=== PATIENT | female | born 1945 | race Caucasian/White ===

== ENCOUNTER → 2019-11-16 | Outpatient (CLI) | payer OTHER | LOC: SJCVC 14:24 | DX: R94.31 Abnormal electrocardiogram [ECG] [EKG] (principal); I21.29 ST elevation (STEMI) myocardial infarction involving other sites; R06.02 Shortness of breath; I10 Essential (primary) hypertension; E78.00 Pure hypercholesterolemia, unspecified; R40.0 Somnolence ==

== ENCOUNTER → 2019-11-29 | Outpatient (CLI) | payer OTHER ==
--- NOTE | 2019-12-03 15:49 | SLE ---
[facility] [place] [address] POLYSOMNOGRAPHY STUDY Name: ALIYA VASQUEZ JAY Room #: [facility].#: [id number] Admission: 11/29/19 Attend Phys: Nubia Ren MD Discharge: Date of : 49 Report #: [id number] THIS REPORT FOR: //name// CC: Nubia Gaitan MD [facility] Marie Peña DATE OF SERVICE: 11/29/2019 SLEEP STUDY ATTENDING PHYSICIAN: Dr. Jose De Jesus Gaitan. The patient is a 74-year-old, who weighs 220 pounds with a BMI of 43. The patient's [place] score was 9. The patient underwent diagnostic sleep study performed at [facility]. During the night study, the patient spent 374 minutes in bed and slept for 318 minutes with a sleep efficiency of 85%. Sleep latency was 24 minutes with a REM latency of 266 minutes. Sleep architecture showed increased stage 1 and stage 2 sleep, absent slow wave and normal REM sleep. During the night study, the patient had 86 obstructive apneas, 1 mixed apnea, 5 central apneas and 56 hypopneas. The patient's apnea hypopnea index was 27.9 per hour with a REM index of 81.7 per hour and a supine index of 27.9 per hour. EKG monitoring revealed an average heart rate of 71 beats per minute. No sustained arrhythmias observed. PLMS was seen at an index of 3 per hour and 0.2 per hour caused EEG arousals. Nocturnal oximetry study revealed an average oxygen saturation of 88% with lowest of 69%. 201 minutes were spent in oxygen saturation of less than 89%. The patient should return to the sleep lab for CPAP titration. IMPRESSION: 1. Moderate to severe obstructive sleep apnea. Total AHI of 27.9 per hour with a REM AHI of 81.7 per hour. 2. Nocturnal hypoxia secondary to obstructive sleep apnea and suspected hypoventilation. 3. No clinically significant periodic limb movements. RECOMMENDATIONS: 1. The patient should return to the sleep lab for CPAP titration study. [facility] [address] [place] [address] POLYSOMNOGRAPHY STUDY Name: ALIYA VASQUEZ JAY Room #: [facility].#: [id number] Admission: 11/29/19 Attend Phys: Nubia Ren MD Discharge: Date of : 49 Report #: [id number] 2. Once the patient is optimally treated, then follow up in 4-6 weeks to assess compliance with CPAP and to document clinical improvement. 3. Weight loss is strongly advised. 4. Avoid [employer] depressants. 5. Cautioned regarding driving until symptoms of sleep apnea resolve with the use of CPAP. <ELECTRONICALLY SIGNED> By: Alban Ziegler MD 12/03/19 1549 [id number] 1336 Alban Ziegler MD /nt
== END ==
LOC: SLEEPLAB 13:22
DX: R53.83 Other fatigue (principal); R09.02 Hypoxemia; G47.30 Sleep apnea, unspecified

== ENCOUNTER → 2019-11-30 | Outpatient (CLI) | payer OTHER | LOC: SJCVCIMAG 08:57 | DX: I08.3 Combined rheumatic disorders of mitral, aortic and tricuspid valves (principal) ==

== ENCOUNTER → 2019-12-13 | Outpatient (CLI) | payer OTHER ==
--- NOTE | 2019-12-16 22:59 | SLE ---
[facility] [place] [address] POLYSOMNOGRAPHY STUDY Name: ALIYA VASQUEZ JAY Room #: REG [facility].#: [id number] Admission: 12/13/19 Attend Phys: Alban Ziegler MD Discharge: Date of : 49 Report #: [id number] THIS REPORT FOR: //name// CC: Alban Burdick MD DATE OF SERVICE: 12/14/2019 ATTENDING PHYSICIAN: Dr. Jaime Burdick. The patient is 74 years old who weighs 215 pounds with a BMI of 42. The patient's [place] score was 9. The patient underwent CPAP titration study at [place] [place] after testing positive for CLAUDIA by home sleep study. The patient had [id number] CLAUDIA. During the night study, the patient spent 391 minutes in bed and slept for 332 minutes with a sleep efficiency of 85%. Sleep latency was 28 minutes with a REM latency of 261 minutes. Sleep architecture showed normal stage 1 sleep, increased stage 2 sleep, normal slow wave, and reduced REM sleep. EKG monitoring revealed an average heart rate of 69 beats per minute. No sustained arrhythmias observed. PLMS were seen at an index of 26 per hour and 1 per hour caused EEG arousals. The patient was started on CPAP at a pressure of 9 cm water and titrated up to 14 cm water. At the final pressure, the patient slept for 76 minutes including 27.6 minutes of lateral REM sleep. The patient's AHI was reduced to 2.4 per hour and oxygen saturation remained above 89%. IMPRESSION: 1. Sleep apnea diagnosed by home sleep study. 2. Moderate periodic limb movements without any significant EEG arousals. This does not need to be treated unless the patient has symptoms of restless legs during the day. RECOMMENDATIONS: 1. CPAP at 14 cm water completely eliminated the patient's sleep apnea and should be used on a nightly basis. 2. Follow up in 4-6 weeks to assess compliance with CPAP and to document clinical improvement. 3. Weight loss is strongly advised. 4. Avoid [employer] depressants. [facility] [address] [place] [address] POLYSOMNOGRAPHY STUDY Name: ALIYA VASQUEZ [facility] Room #: [facility].#: [id number] Admission: 12/13/19 Attend Phys: Alban Ziegler MD Discharge: Date of : 49 Report #: [id number] 5. Cautioned regarding driving until symptoms of sleep apnea resolve with the use of CPAP. <ELECTRONICALLY SIGNED> By: Alban Ziegler MD 12/16/19 2259 [id number] 1215 Alban Ziegler MD /nt
== END ==
LOC: SLEEPLAB 10:27
DX: G47.33 Obstructive sleep apnea (adult) (pediatric) (principal)

== ENCOUNTER → 2020-08-26 | Outpatient (CLI) | payer OTHER | LOC: SJCVC 14:01 | PROVIDERS: ATTEND Internal Medicine | DX: R94.31 Abnormal electrocardiogram [ECG] [EKG] (principal); I11.9 Hypertensive heart disease without heart failure; I44.7 Left bundle-branch block, unspecified; R06.02 Shortness of breath; E78.00 Pure hypercholesterolemia, unspecified; G47.33 Obstructive sleep apnea (adult) (pediatric); I25.10 Atherosclerotic heart disease of native coronary artery without angina pectoris ==

== ENCOUNTER → 2020-09-15 | Outpatient (CLI) | payer OTHER | LOC: SJCVCIMAG 10:31 | PROVIDERS: ATTEND Internal Medicine | DX: I11.9 Hypertensive heart disease without heart failure (principal); I25.10 Atherosclerotic heart disease of native coronary artery without angina pectoris; E78.5 Hyperlipidemia, unspecified; E78.00 Pure hypercholesterolemia, unspecified; G47.33 Obstructive sleep apnea (adult) (pediatric); J45.40 Moderate persistent asthma, uncomplicated; I48.0 Paroxysmal atrial fibrillation; M19.90 Unspecified osteoarthritis, unspecified site; Z82.49 Family history of ischemic heart disease and other diseases of the circulatory system; Z87.891 Personal history of nicotine dependence; Z79.899 Other long term (current) drug therapy ==

== ENCOUNTER → 2020-10-06 | Outpatient (CLI) | payer OTHER | LOC: RAD 08:28 | PROVIDERS: ATTEND Pediatrics | DX: R06.00 Dyspnea, unspecified (principal); I77.810 Thoracic aortic ectasia ==